=== PATIENT | female | born 1945 | race Caucasian/White ===

== ENCOUNTER 2017-04-30 21:59 | Emergency (ER) | payer OTHER ==
[~2017-04-30] VITALS: Ht 157.5 cm; Wt 109.8 kg
[2017-04-30 22:03] VITALS: BP_SYST 128
--- NOTE | 2017-04-30 22:36 | NUR ---
Patient to ER bed 1 to gown for evaluation. Side rails up. Report given to BRANDON Shaffer.
--- NOTE | 2017-04-30 22:37 | NUR ---
Pt is A&OX4. at bedside. Pt C/O of asthma, SOB on exertion, wheezing, headache, cough and dizzyness. Pain stated 4/10. Wheezing heard throughout lungs, and SOB noted upon exertion. SPO2 of 96%, RR even and unlabored at this time. No signs of acute distress noted. Will continue to monitor.
--- NOTE | 2017-04-30 23:10 | NUR ---
ER MD Bahek at beside examining patient.
[2017-04-30] MEDS ORDERED: NACL 0.9% 1,000 ML IV ONE (23:28)
[2017-04-30] MEDS ORDERED: IPRATROPIUM BROM 0.5 MG/2.5 ML VIAL.NEB (ATROVENT) IH ONE (23:30)
[2017-04-30] MEDS ORDERED: LevALBUTEROL HCL 1.25 MG/0.5 ML *CONC.* VIAL.NEB (XOPENEX CONC.) INH ONE (23:30)
[2017-04-30] MEDS ORDERED: cefTRIAXone 1 GM IVPB PREMIX 50 ML IV ONE (23:30)
[2017-04-30] MEDS ORDERED: methylPREDNISolone SOD SUCC/PF 62.5 MG/ML VIAL IVP ONE (23:30)
--- NOTE | 2017-05-01 | NUR ---
20 gauge angiocath placed to left AC. Use of asceptic technique. Opsite placed over site. Blood return noted. Flushed with 10 cc of normal saline. No evidence of infiltration noted. Patient tolerated well.
[2017-05-01 00:02] LABS: BILIRUBIN,URINE NEGATIVE (NEGATIVE); BLOOD, URINE 2+ (NEGATIVE); CLARITY/URINE CLEAR (CLEAR); COLOR,URINE YELLOW (YELLOW); GLUCOSE,URINE NEGATIVE (NEGATIVE); KETONES,URINE NEGATIVE (NEGATIVE); LEUKOCYTE ESTERASE ,URINE NEGATIVE (NEGATIVE); NITRITE, URINE NEGATIVE (NEGATIVE); PROTEIN URINE NEGATIVE (NEGATIVE); UROBILINOGEN,URINE 0.2 (0.2-1.0)
[2017-05-01] MEDS ORDERED: LISI10TA PO (00:10)
[2017-05-01] MEDS ORDERED: PRO40 PO (00:11)
[2017-05-01] MEDS ORDERED: TRIA1CAP53 PO (00:11)
[2017-05-01] MEDS ORDERED: WARF5TAB2 PO ×2 (00:13→00:16)
[2017-05-01] MEDS ORDERED: LEVO150T8 PO (00:17)
[2017-05-01] MEDS ORDERED: CALC0.258 PO (00:18)
[2017-05-01] MEDS ORDERED: FLUT1DIS3 INH (00:19)
[2017-05-01] MEDS ORDERED: METO50TA7 PO (00:19)
[2017-05-01] MEDS ORDERED: ALBU8.5H8 INH (00:22)
[2017-05-01] MEDS ORDERED: HYDR-3924 PO (00:23)
[2017-05-01] MEDS ORDERED: TEMA15CA51 PO (00:23)
[2017-05-01] MEDS ORDERED: LATA2.5D6 OP (00:23)
[2017-05-01 00:27] LABS: BACTERIA,URINE FEW /HPF (None Seen)
[2017-05-01 00:28] LABS: MUCUS,URINE None Seen /LPF (None Seen)
[2017-05-01] MEDS ORDERED: LevALBUTEROL HCL 1.25 MG/0.5 ML *CONC.* VIAL.NEB (XOPENEX CONC.) INH ONE ×2 (00:30→01:30)
--- NOTE | 2017-05-01 00:42 | NUR ---
RT at bedside.
--- NOTE | 2017-05-01 00:58 | NUR ---
Radiology at bedside.
--- NOTE | 2017-05-01 01:20 | NUR ---
ED MD Bahek at bedside reassessing patient.
--- NOTE | 2017-05-01 01:36 | NUR ---
RT at bedside.
--- NOTE | 2017-05-01 01:50 | NUR ---
Patient given written and verbal discharge instructions and verbalizes understanding. ER MD discussed with patient the results and treatment provided. Patient in stable condition. ID arm band removed. IV catheter removed intact and dressing applied, no active bleeding. No Rx given. Patient educated on pain management and to follow up with PMD. Pain Scale 0/10 at this time. Opportunity for questions provided and answered.
[2017-05-01 01:52] VITALS: BP_SYST 117
== END 2017-05-01 01:50 | disposition home or self-care (01) ==
LOC: SED 21:59
DX: J40 Bronchitis, not specified as acute or chronic (principal); I10 Essential (primary) hypertension; I48.91 Unspecified atrial fibrillation; Z79.899 Other long term (current) drug therapy
CPT/HCPCS: 71010; 81000; 94640; 96365; 96375; 99285; J0696; J2930; J7030

== ENCOUNTER 2021-05-09 09:19 | Observation (INO) | payer OTHER, SELFPAY ==
[~2021-05-09] VITALS: Ht 165.1 cm; Wt 89.8 kg
[~2021-05-09 09:19] MED LIST: ALBU8.5H8 INH; CALC0.258 PO; FLUT1DIS3 INH; HYDR-4497 PO; LEVO150T8 PO; LISI10TA PO; METO50TA7 PO; PRO40 PO; TEMA15CA5 PO; TRIA1CAP53 PO; WARF5TAB2 PO; XALEYE OP
[2021-05-09 09:26] VITALS: BP_SYST 140
--- NOTE | 2021-05-09 09:26 | NUR ---
Patient to ER bed 03 to gown for evaluation. Side rails up.
[2021-05-09] MEDS ORDERED: NACL 0.9% 1,000 ML IV ONE (09:45)
[2021-05-09 09:58] LABS: BASOPHILS % (AUTO) 0.7 % (0.0-2.0); EOSINOPHILS # (AUTO) 0.2 K/uL (0.0-0.4); EOSINOPHILS % (AUTO) 4.1 % (0.0-4.0); HEMATOCRIT 27.3 % (36-48); HEMOGLOBIN 8.8 g/dL (12.0-16.0); LYMPHOCYTES # (AUTO) 0.9 K/uL (1.0-5.5); LYMPHOCYTES % (AUTO) 19.7 % (20.5-51.5); MEAN CORPUSCULAR HEMOGLOBIN 24 pg (27-31); MEAN CORPUSCULAR HGB CONC 32 % (32-36); MEAN CORPUSCULAR VOLUME 74 fL (79.0-98.0); MONOCYTES # (AUTO) 0.3 K/uL (0.0-1.0); MONOCYTES % (AUTO) 7.7 % (1.7-9.3); NEUTROPHILS # (AUTO) 3.1 K/uL (1.8-7.7); NEUTROPHILS % (AUTO) 67.8 % (40.0-70.0); PLATELET COUNT (AUTO) 190 K/uL (130-430); RED BLOOD CELL COUNT(AUTO) 3.68 MIL/uL (4.2-6.2); RED CELL DISTRIBUTION WIDTH 15.8 % (9.0-15.0); WHITE BLOOD COUNT (AUTO) 4.5 K/uL (4.8-10.8)
--- NOTE | 2021-05-09 10:17 | NUR ---
Pt going to ct scan via w/c
--- NOTE | 2021-05-09 10:20 | NUR ---
PT COMES TO ER WITH C/O SUDDEN ONSET DIZZINESS AND GENRLAIZED BODYACHE THIS MORNING. REPORTS HAVING AN INCREASING TIME WALKING FROM BEDROOM TO LIVING ROOM. PT AAOX3, IN NAD. RESP EVEN AND UNLABORED, DENIES ANY CP OR SOB. SKIN W/D/I. DENIES HEADACHE, FEVERS/CHILLS. DENIES ANY RECENT FALLS, DENIES ANY NEW MEDS. APPETITE WELL, NO OTHER CHANGES. SAFETY MEASURES IN PLACE, WILL CONT TO MONITOR.
[2021-05-09 10:21] LABS: ANION GAP 5 (5-15); CALCIUM 8.1 mg/dL (8.4-11.0); CHLORIDE 96 mmol/L (98-107); CREATININE 0.81 mg/dL (0.55-1.30); GLUCOSE 99 mg/dL (70-99); POTASSIUM 4.3 mmol/L (3.5-5.1); SODIUM SERUM 128 mmol/L (136-145); UREA NITROGEN, BLOOD 19 mg/dL (8-21)
[2021-05-09 10:26] LABS: ALANINE AMINOTRANSFERASE 34 U/L (12-78); ALBUMIN 3.3 g/dL (3.4-4.8); ASPARTATE AMINOTRANSFERASE 28 U/L (10-37); TOTAL BILIRUBIN 0.5 mg/dL (0.0-1.0)
--- NOTE | 2021-05-09 10:52 | NUR ---
UPON ASSESSMENT, NOTED LARGE ABDOMINAL HERNIA, PT STATES ITS BEEN THERE FOR OVER 20 YEARS. [place] LOWER EXTREMITIES WITH LYMPHEDEMA OVER 23 YEARS. ALSO REPORTED HAVING AN INJURY WITH [employer] THAT CAUSED LAC, WAS SEEN LAST WEEK WITH WOUND CARE SPECILAIST AND THEY DRESSED IT YESTERDAY. DENIES ANY PAIN. DNEIES ANY NUMBNESS/TINLGING. NO DRAINAGE NOTED.
[2021-05-09 11:29] LABS: INR 2.1 (0.8-1.2); PROTHROMBIN TIME 21.4 SECS (9.5-12.5)
--- NOTE | 2021-05-09 11:30 | NUR ---
Rectal exam performed by Dr Vega with myself at bedside during procedure. Patient tolerated well.
[2021-05-09 11:59] LABS: BILIRUBIN,URINE NEGATIVE (NEGATIVE); BLOOD, URINE NEGATIVE (NEGATIVE); CLARITY/URINE CLEAR (CLEAR); COLOR,URINE YELLOW (YELLOW); GLUCOSE,URINE NEGATIVE (NEGATIVE); KETONES,URINE NEGATIVE (NEGATIVE); LEUKOCYTE ESTERASE ,URINE NEGATIVE (NEGATIVE); NITRITE, URINE NEGATIVE (NEGATIVE); PH,URINE 5.5 (5.0-8.0); PROTEIN URINE NEGATIVE (NEGATIVE); UROBILINOGEN,URINE 0.2 (0.2-1.0)
--- NOTE | 2021-05-09 13:06 | NUR ---
No acute changes in condition, pt in NAD. Lunch offered and ate well. drinking p ofluids well.
--- NOTE | 2021-05-09 15:29 | NUR ---
pt went to bathroom and had a bm with assistance to bathroom via w/c.
--- NOTE | 2021-05-09 15:37 | NUR ---
PT REQUESTNG MORE FOOD AND WATER. TURKEY SANDWICH/CHIPS AND SNACKS GIVEN. PT SITTING UP IN BED EATING WELL.
--- NOTE | 2021-05-09 18:31 | NUR ---
DINNER TRAY GIVEN, PT COMPLAINING THAT SHE WANTS TO MOVE TO HER ROOM SO THAT SHE HAS A TV AND IS AWAY FROM OPENING ER DOORS. INFORMED HER THAT SOON WE GET BED, SHE WILL BE TRANSFERRED. PT UPDATED ON DIAGNOSIS AND PLAN OF CARE VERBALIZED UNDERSTANDING. VSS.
--- NOTE | 2021-05-09 19:07 | NUR ---
Received report from BRANDON Betancourt for continuation of care.
--- NOTE | 2021-05-09 19:26 | NUR ---
Patient ambulated to restroom with assistance. Patient returned to [facility] and placed on monitor.
--- NOTE | 2021-05-09 19:38 | NUR ---
Assumed total care of patient. Patient AAO x4 resting comfortably on hospital bed, VSS, breathing even and unlabored, no signs of acute distress noted. Patient IV site patent and no signs of infiltration or infection. Patient reports she dizziness has improved and felt comfortable walking to restroom. Will continue to monitor.
[2021-05-09] MEDS ORDERED: ALBUTEROL SULFATE 0.083% 2.5 MG/3 ML VIAL.NEB INH PRN (19:45)
[2021-05-09] MEDS ORDERED: IPRATROPIUM BROM 0.5 MG/2.5 ML VIAL.NEB (ATROVENT) INH PRN (19:45)
[2021-05-09] MEDS ORDERED: TEMAZEPAM 15 MG CAPSULE PO PRN (19:45)
--- NOTE | 2021-05-09 20:05 | NUR ---
Patient is going to room 118B
--- NOTE | 2021-05-09 20:12 | NUR ---
Transfer to TELE via ACLS protocol. Licensed nurse present. IV present no signs or symptoms of infiltration.
[2021-05-09 20:15] VITALS: BP_SYST 108
--- NOTE | 2021-05-09 20:30 | NUR ---
Received patient from ER via gurney. Placed in bed; cardiac monitor technician in connected. vital signs recorded. will continue to monitor.
[2021-05-09 21:00] VITALS: BP_SYST 117
--- NOTE | 2021-05-09 22:20 | NUR ---
Ambulatory to bathroom with supervision and assisted by two walking canes. Back to bed safely.
[2021-05-09] MEDS: ALBUTEROL SULFATE 0.083% 2.5 MG/3 ML VIAL.NEB INH SCH (23:00)
[2021-05-09] MEDS: IPRATROPIUM BROM 0.5 MG/2.5 ML VIAL.NEB (ATROVENT) INH SCH (23:00)
--- NOTE | 2021-05-09 23:40 | NUR ---
Dr Lindsay contacted for pain medication orders. Patient reports taking [place] 7.5 mg at home for leg and back pain. Orders received for [place] 7.5 mg PO x1 only. will be given to patient.
[2021-05-10] MEDS ORDERED: HYDROcodone/ACETAMIN 7.5-325 MG TAB PO ONE
[2021-05-10] MEDS: IPRATROPIUM BROM 0.5 MG/2.5 ML VIAL.NEB (ATROVENT) INH SCH ×4 (03:00→14:38)
[2021-05-10] MEDS: ALBUTEROL SULFATE 0.083% 2.5 MG/3 ML VIAL.NEB INH SCH ×4 (03:00→14:38)
[2021-05-10] MEDS ORDERED: LEVOTHYROXINE SODIUM 0.15 MG TABLET PO SCH (07:00)
[2021-05-10] MEDS ORDERED: BUDESONIDE 0.5 MG/2 ML AMPUL.NEB INH SCH (07:00)
[2021-05-10 08:34] VITALS: BP_SYST 128
[2021-05-10] MEDS ORDERED: PANTOPRAZOLE SODIUM 40 MG TAB PO SCH (09:00)
[2021-05-10] MEDS ORDERED: FLUTICASONE 250 mCg/SALMETEROL 50 mCg DISKUS W.DEV INH SCH (09:00)
[2021-05-10] MEDS ORDERED: METOPROLOL SUCCINATE 50 MG TAB.SR.24H (TOPROL XL) PO SCH (09:00)
--- NOTE | 2021-05-10 11:00 | NUR ---
PATIENT ENDORSED TO BRANDON PAYTON. PT ON STABLE CONDITION. WAS JUST ASSISTED BACK TO BED AFTER FINISHING HER BREAKFAST.
--- NOTE | 2021-05-10 11:13 | NUR ---
CONSULTATION PAGED REASON FOR CONSULTATION:DIZZINESS WAS CONSULT CALLED?Y PERSON WHO WAS NOTIFIED:TEXT MESSAGED M[facility]ER CONSULTING PHYSICIAN:[facility] FINANCIAL OFFICER SPECIALTY:[facility] CHIEF FINANCIAL OFFICER PHONE NUMBER:[phone] REQUESTING PHYSICIAN:MARILYNN HARDIN
[2021-05-10 12:48] LABS: THYROID STIMULATING HORMONE 7.17 uIu/mL (0.36-3.74)
[2021-05-10 17:35] VITALS: BP_SYST 120
--- NOTE | 2021-05-10 19:05 | NUR ---
DISCHARGE: PT DISCHARGED HOME WITH ALL BELONGINGS. PTS FRIEND TOOK PT HOME IN PRIVATE AUTO. DISCHARGE PAPERWORK EXPLAINED AND UNDERSTOOD. ALL QUESTIONS ANSWERED.
== END 2021-05-10 19:05 | disposition home or self-care (01) ==
LOC: SED 09:19 → STU 11:52 → INTOOBSV 11:52 → STU 19:43
PROVIDERS: ADMIT Internal Medicine Hospice and Palliative Medicine; ATTEND Internal Medicine Hospice and Palliative Medicine
DX: R42 Dizziness and giddiness (principal); Z20.822 Contact with and (suspected) exposure to COVID-19; I48.91 Unspecified atrial fibrillation; I10 Essential (primary) hypertension; J45.909 Unspecified asthma, uncomplicated; D64.9 Anemia, unspecified; R55 Syncope and collapse; E89.0 Postprocedural hypothyroidism; Z98.84 Bariatric surgery status; Z79.899 Other long term (current) drug therapy
CPT/HCPCS: 36415 ×2; 70450; 70551; 71045; 76376; 80053; 81003; 84443; 84484 ×2; 85025; 85610; 87426; 93005; 93306; 96360; 99285; G0378 ×2; J7613; J7626

== ENCOUNTER 2022-02-19 15:10 | Inpatient (IN) | payer OTHER ==
[~2022-02-19] VITALS: Ht 162.6 cm; Wt 88.0 kg
[2022-02-19 15:23] VITALS: BP_SYST 133
[2022-02-19 16:25] LABS: ANION GAP 21 (5-15); CALCIUM 7.9 mg/dL (8.4-11.0); CHLORIDE 97 mmol/L (98-107); CREATININE 0.67 mg/dL (0.55-1.30); GLUCOSE 93 mg/dL (70-99); POTASSIUM 4.1 mmol/L (3.5-5.1); SODIUM SERUM 142 mmol/L (136-145); UREA NITROGEN, BLOOD 16 mg/dL (8-21)
[2022-02-19 16:30] LABS: INR 2.3 (0.8-1.2); PROTHROMBIN TIME 22.7 SECS (9.5-12.5)
[2022-02-19 16:34] LABS: ALANINE AMINOTRANSFERASE 41 U/L (12-78); ALBUMIN 2.9 g/dL (3.4-4.8); ASPARTATE AMINOTRANSFERASE 36 U/L (10-37); TOTAL BILIRUBIN 0.7 mg/dL (0.0-1.0)
[2022-02-19 17:01] LABS: HEMATOCRIT 26.8 % (36-48); HEMOGLOBIN 8.8 g/dL (12.0-16.0); MEAN CORPUSCULAR HEMOGLOBIN 27 pg (27-31); MEAN CORPUSCULAR HGB CONC 33 % (32-36); MEAN CORPUSCULAR VOLUME 82 fL (79.0-98.0); PLATELET COUNT (AUTO) 131 K/uL (130-430); RED BLOOD CELL COUNT(AUTO) 3.26 MIL/uL (4.2-6.2); RED CELL DISTRIBUTION WIDTH 16.8 % (9.0-15.0); WHITE BLOOD COUNT (AUTO) 2.9 K/uL (4.8-10.8)
[2022-02-19 17:30] LABS: BILIRUBIN,URINE NEGATIVE (NEGATIVE); BLOOD, URINE NEGATIVE (NEGATIVE); COLOR,URINE YELLOW (YELLOW); GLUCOSE,URINE NEGATIVE (NEGATIVE); KETONES,URINE NEGATIVE (NEGATIVE); LEUKOCYTE ESTERASE ,URINE NEGATIVE (NEGATIVE); NITRITE, URINE POSITIVE (NEGATIVE); PH,URINE 5.5 (5.0-8.0); PROTEIN URINE NEGATIVE (NEGATIVE); UROBILINOGEN,URINE 0.2 (0.2-1.0)
[2022-02-19 17:36] LABS: CLARITY/URINE HAZY (CLEAR)
[2022-02-19 17:56] LABS: BACTERIA,URINE MANY /HPF (None Seen); MUCUS,URINE None Seen /LPF (None Seen); RBC,URINE NONE SEEN /HPF (0-3)
[2022-02-19] MEDS ORDERED: cephALEXin 500 MG CAPSULE PO ONE (18:15)
[2022-02-19 19:48] LABS: BAND % (MANUAL) 0 % (0-6); BASOPHILS % (MANUAL) 0 % (0-2); EOSINOPHILS % (MANUAL) 4 % (0-7); LYMPHOCYTES % (MANUAL) 26 % (20-46); MONOCYTES % (MANUAL) 11 % (0-11)
[2022-02-19] MEDS ORDERED: WARFARIN SODIUM 5 MG TABLET PO ONE (20:19)
[2022-02-20] VITALS (7 sets, daily range): BP systolic 103–127
[2022-02-20] MEDS ORDERED: cefTRIAXone 1 GM in D5W 50 ML IV SCH (00:45)
[2022-02-20] MEDS: HYDROcodone/ACETAMIN 7.5-325 MG TAB PO PRN ×2 (00:58→19:25)
[2022-02-20] MEDS ORDERED: cefTRIAXone 1 GM IVPB PREMIX 50 ML IV ONE (01:33)
[2022-02-20 13:16] LABS: BASOPHILS % (AUTO) 0.9 % (0.0-2.0); EOSINOPHILS # (AUTO) 0.1 K/uL (0.0-0.4); HEMATOCRIT 29.2 % (36-48); HEMOGLOBIN 9.6 g/dL (12.0-16.0); LYMPHOCYTES # (AUTO) 0.9 K/uL (1.0-5.5); LYMPHOCYTES % (AUTO) 31.7 % (20.5-51.5); MEAN CORPUSCULAR HEMOGLOBIN 27 pg (27-31); MEAN CORPUSCULAR HGB CONC 33 % (32-36); MEAN CORPUSCULAR VOLUME 82 fL (79.0-98.0); MONOCYTES # (AUTO) 0.2 K/uL (0.0-1.0); NEUTROPHILS # (AUTO) 1.6 K/uL (1.8-7.7); NEUTROPHILS % (AUTO) 56.4 % (40.0-70.0); PLATELET COUNT (AUTO) 136 K/uL (130-430); RED BLOOD CELL COUNT(AUTO) 3.57 MIL/uL (4.2-6.2); RED CELL DISTRIBUTION WIDTH 16.9 % (9.0-15.0); WHITE BLOOD COUNT (AUTO) 2.9 K/uL (4.8-10.8)
[2022-02-20 13:18] LABS: ANION GAP 7 (5-15); CALCIUM 7.8 mg/dL (8.4-11.0); CHLORIDE 101 mmol/L (98-107); CREATININE 0.62 mg/dL (0.55-1.30); GLUCOSE 98 mg/dL (70-99); POTASSIUM 4.4 mmol/L (3.5-5.1); SODIUM SERUM 135 mmol/L (136-145); UREA NITROGEN, BLOOD 16 mg/dL (8-21)
[2022-02-20] MEDS: NACL 0.9% 1,000 ML IV SCH ×2 (13:29→22:16)
[2022-02-20] MEDS ORDERED: ALBUTEROL SULFATE 0.083% 2.5 MG/3 ML VIAL.NEB INH PRN (15:45)
[2022-02-20] MEDS ORDERED: PANTOPRAZOLE SODIUM 40 MG TAB PO SCH (21:15)
[2022-02-20] MEDS ORDERED: WARFARIN SODIUM 5 MG TABLET PO ONE (21:15)
[2022-02-20] MEDS: calcitrioL 0.25 MCG CAPSULE PO SCH (22:14)
[2022-02-21 00:20] VITALS: BP_SYST 130
[2022-02-21] MEDS: ASPIRIN 81 MG TAB.CHEW PO ONE ×2 (01:05→01:27)
[2022-02-21 06:57] LABS: BASOPHILS % (AUTO) 0.7 % (0.0-2.0); EOSINOPHILS # (AUTO) 0.1 K/uL (0.0-0.4); EOSINOPHILS % (AUTO) 3.2 % (0.0-4.0); HEMATOCRIT 29.4 % (36-48); HEMOGLOBIN 9.8 g/dL (12.0-16.0); LYMPHOCYTES % (AUTO) 29.1 % (20.5-51.5); MEAN CORPUSCULAR HEMOGLOBIN 27 pg (27-31); MEAN CORPUSCULAR HGB CONC 34 % (32-36); MEAN CORPUSCULAR VOLUME 82 fL (79.0-98.0); MONOCYTES # (AUTO) 0.2 K/uL (0.0-1.0); MONOCYTES % (AUTO) 7.1 % (1.7-9.3); NEUTROPHILS # (AUTO) 2.1 K/uL (1.8-7.7); NEUTROPHILS % (AUTO) 59.9 % (40.0-70.0); PLATELET COUNT (AUTO) 125 K/uL (130-430); RED BLOOD CELL COUNT(AUTO) 3.58 MIL/uL (4.2-6.2); RED CELL DISTRIBUTION WIDTH 16.8 % (9.0-15.0); WHITE BLOOD COUNT (AUTO) 3.4 K/uL (4.8-10.8)
[2022-02-21 07:14] LABS: ANION GAP 7 (5-15); CALCIUM 7.1 mg/dL (8.4-11.0); CHLORIDE 101 mmol/L (98-107); CREATININE 0.73 mg/dL (0.55-1.30); GLUCOSE 90 mg/dL (70-99); POTASSIUM 4.1 mmol/L (3.5-5.1); SODIUM SERUM 134 mmol/L (136-145); UREA NITROGEN, BLOOD 16 mg/dL (8-21)
[2022-02-21 08:48] LABS: CHOLESTEROL 91 mg/dL (<200); HDL CHOLESTEROL 49 mg/dL (>55); LDL CHOLESTEROL 42 mg/dL (<100); TRIGLYCERIDES 27 mg/dL (30-150)
[2022-02-21] MEDS ORDERED: PANTOPRAZOLE SODIUM 40 MG TAB PO SCH (09:00)
[2022-02-21] MEDS ORDERED: LISINOPRIL 10 MG TABLET (PRINIVIL) PO SCH (09:00)
[2022-02-21] MEDS ORDERED: LATANOPROST 2.5 ML DROPS (XALATAN) OP SCH (09:00)
[2022-02-21] MEDS ORDERED: LEVOTHYROXINE SODIUM 0.112 MG TABLET PO SCH (09:00)
[2022-02-21] MEDS ORDERED: TRIAMTERENE/HYDROCHLOROTHIAZID 1 CAP CAPSULE (DYAZIDE37.5/25) PO SCH (09:00)
[2022-02-21] MEDS ORDERED: ATORVASTATIN 20 MG TABLET PO SCH (09:00)
[2022-02-21] MEDS ORDERED: ASPIRIN 81 MG TAB.CHEW PO SCH (09:00)
[2022-02-21] MEDS: calcitrioL 0.25 MCG CAPSULE PO SCH (09:36)
[2022-02-21] MEDS: HYDROcodone/ACETAMIN 7.5-325 MG TAB PO PRN (09:36)
[2022-02-21 11:11] LABS: INR 1.9 (0.8-1.2); PROTHROMBIN TIME 19.4 SECS (9.5-12.5)
[2022-02-21] MEDS ORDERED: METO-540 PO (15:04)
[2022-02-21] MEDS ORDERED: LEVO500T90 PO (15:05)
[2022-02-21 17:52] VITALS: BP_SYST 119
[2022-02-21] MEDS ORDERED: WARFARIN SODIUM 5 MG TABLET PO SCH (18:00)
[2022-02-21] MEDS ORDERED: LEVOFLOXACIN 250 MG/D5W 50 ML IV SCH (23:00)
== END 2022-02-21 18:32 | disposition home or self-care (01) | DRG 603 ==
LOC: SED 15:10 → STU 19:55
PROVIDERS: ADMIT Student in an Organized Health Care Education/Training Program; ATTEND Student in an Organized Health Care Education/Training Program
DX: L03.116 Cellulitis of left lower limb (principal); G45.9 Transient cerebral ischemic attack, unspecified; N39.0 Urinary tract infection, site not specified; E44.0 Moderate protein-calorie malnutrition; I48.91 Unspecified atrial fibrillation; M79.7 Fibromyalgia; M06.9 Rheumatoid arthritis, unspecified; I10 Essential (primary) hypertension; Z20.822 Contact with and (suspected) exposure to COVID-19; K21.9 Gastro-esophageal reflux disease without esophagitis; E03.9 Hypothyroidism, unspecified; G90.8 Other disorders of autonomic nervous system; Z79.01 Long term (current) use of anticoagulants; Z79.899 Other long term (current) drug therapy
CPT/HCPCS: 36415; 70450-TC; 70551; 71045; 76376; 80048; 80053; 80061; 81000; 82550; 83605; 84484; 85007; 85025; 85027; 85610-TC; 85730-TC; 87040; 87086; 93005; 93880; 99285; G0378; J0696; J1956; J7060